=== PATIENT | female | born 1990 | race Caucasian/White ===

== ENCOUNTER 2023-08-26 10:43 | Inpatient (IN) | payer OTHER ==
[2023-08-26] MEDS: DEXTROSE 5%-LACTATED RINGERS 1,000 ML IV SCH (12:18)
[2023-08-26 12:51] LABS: BASO % 0.3 % (0-2.0); EOS % 0.4 % (0-4.5); HEMATOCRIT 36.1 % (32.4-45.2); HEMOGLOBIN 11.7 GM/dL (10.7-15.3); LYMPH % 11.6 % (8-40); MCH 25.9 pg (25.7-33.7); MCHC 32.3 g/dl (32.0-36.0); MEAN CELL VOLUME 80.2 fl (80-96); MEAN PLT VOLUME 8.1 fl (7.5-11.1); MONO % 7.3 % (3.8-10.2); NEUT % 80.4 % (42.8-82.8); PLATELET COUNT 247 10^3/uL (134-434); RDW 15.8 % (11.6-15.6); WHITE BLOOD COUNT 12.2 K/mm3 (4.0-10.0)
[2023-08-26 12:52] VITALS: BMI 30.4
[2023-08-26 13:00] LABS: PROTHROMBIN TIME (PATIENT) 11.6 SEC (9.7-13.0)
[2023-08-26 13:03] LABS: ACTIVATED PTT 25.6 SECONDS (25.2-36.5)
[2023-08-26] MEDS ORDERED: PENICILLIN G POTASSIUM 5,000,000 PRE-DOCK IN NS 250 ML IVPB ONE (13:11)
[2023-08-26 13:12] LABS: POTASSIUM 4.1 mmol/L (3.5-5.1)
[2023-08-26 13:14] LABS: BLOOD UREA NITROGEN 8.3 mg/dL (7-18); CALCIUM 9.5 mg/dL (8.5-10.1)
[2023-08-26] MEDS ORDERED: PENICILLIN G POTASSIUM 5,000,000 UNIT/250 ML BAG IVPB ONE (13:17)
[2023-08-26 13:18] LABS: CREATININE 0.5 mg/dL (0.55-1.3)
[2023-08-26] MEDS: PENICILLIN G POTASSIUM 20,000,000 (20Mm) UNITS VIAL IVPB ONE (13:25)
[2023-08-26] MEDS: SODIUM CHLORIDE 1,000 ML IV STA (14:00)
[2023-08-26] MEDS ORDERED: FENTANYL/BUPIVACAINE/NS/PF - PCEA - 50 ML DISP.SYRIN EP ONE (14:25)
[2023-08-26] MEDS ORDERED: NALOXONE HCL 0.4 MG/ML VIAL IVPUSH PRN (14:34)
[2023-08-26] MEDS ORDERED: BUPIVACAINE HCL/PF 0.25% (2.5MG/ML) 10 ML VIAL ONE (14:36)
[2023-08-26] MEDS ORDERED: LIDO 2%/EPI 1:200000 PRESRVFRE (20 ML SDVIAL) ONE (14:37)
[2023-08-26] MEDS: FENTANYL/BUPIVACAINE/NS/PF - PCEA - 50 ML DISP.SYRIN EP SCH (14:51)
[2023-08-26] MEDS ORDERED: LIDOCAINE HCL 1% PRESERVATIVE FREE - 30ML VIAL ONE (15:05)
[2023-08-26] MEDS ORDERED: OXYTOCIN 20 UNITS in 0.9% NS 20 UNIT/1,000 ML INFUS.BAG IV ONE ×2 (15:05→17:43)
[2023-08-26] MEDS: OXYTOCIN 20 UNITS in 0.9% NS 20 UNIT/1,000 ML INFUS.BAG IV SCH (15:30)
[2023-08-26] MEDS ORDERED: BENZOCAINE 28 GM HEMORRHOIDAL OINTMENT TP PRN (15:58)
[2023-08-26] MEDS ORDERED: ACETAMINOPHEN 325 MG TABLET (FP) PO PRN (15:58)
[2023-08-26 16:46] LABS: CORD HCO3 23.4 mmHg (20-29); CORD pH 7.28 (7.14-7.44)
[2023-08-26 16:53] LABS: CORD BASE EXCESS -3.5 mmol/L (0-2); CORD HCO3 24.1 mmHg (20-29); CORD PCO2 51.7 mmHg (30-78); CORD pH 7.287 (7.14-7.44)
[2023-08-26] MEDS ORDERED: IBUPROFEN 600 MG TABLET (FP) PO ONE (17:19)
[2023-08-26] MEDS: IBUPROFEN 600 MG TABLET (FP) PO PRN (17:20)
[2023-08-26] MEDS: FERROUS SO4 325 MG TABLET (FP) PO SCH (18:33)
[2023-08-26] MEDS: PENICILLIN G POTASSIUM 2,500,000 UNIT in SODIUM CHLORIDE 100 ML IVPB SCH (18:33)
[2023-08-26] MEDS: DOCUSATE SODIUM 100 MG CAPSULE (FP) PO SCH (21:56)
[2023-08-27 08:26] LABS: BASO % 0.3 % (0-2.0); EOS % 0.8 % (0-4.5); HEMATOCRIT 26.6 % (32.4-45.2); HEMOGLOBIN 8.6 GM/dL (10.7-15.3); LYMPH % 15.7 % (8-40); MCH 26.1 pg (25.7-33.7); MCHC 32.4 g/dl (32.0-36.0); MEAN CELL VOLUME 80.4 fl (80-96); MEAN PLT VOLUME 8.2 fl (7.5-11.1); MONO % 8.4 % (3.8-10.2); NEUT % 74.8 % (42.8-82.8); PLATELET COUNT 188 10^3/uL (134-434); RBC 3.31 M/mm3 (3.60-5.2); RDW 16.1 % (11.6-15.6); WHITE BLOOD COUNT 13.2 K/mm3 (4.0-10.0)
[2023-08-27] MEDS: WITCH HAZEL 50% (TUCKS) 40 PAD/JAR PAD TP PRN (21:15)
[2023-08-27 22:17] VITALS: BP 96/58
[2023-08-28 08:41] VITALS: PULSE 78; TEMP 97.9
[2023-08-28 08:49] VITALS: RESP 18
== END 2023-08-28 13:12 | disposition home or self-care (01) | DRG 560 ==
LOC: JDEL 10:43 → JLDR 11:35 → J3W 18:21
PROVIDERS: ADMIT Obstetrics & Gynecology Maternal & Fetal Medicine; ATTEND Obstetrics & Gynecology Maternal & Fetal Medicine
PROC: 10E0XZZ Delivery of Products of Conception, External Approach (ICD-10-PCS; principal; 2023-08-26)
DX: O48.0 Post-term pregnancy (principal); Z3A.40 40 weeks gestation of pregnancy; O99.02 Anemia complicating childbirth; D64.9 Anemia, unspecified; O66.0 Obstructed labor due to shoulder dystocia; Z37.0 Single live birth
CPT/HCPCS: 36415; 36600; 80048; 82803; 85025; 85610; 85730; 86780; 86850; 86900; 86901; 88307-TC